=== PATIENT | female | born 1955 | race Caucasian/White ===

== ENCOUNTER 2025-03-06 13:01 | Day surgery (SDC) | payer BC ==
[~2025-03-06] VITALS: Ht 165.1 cm; Wt 63.4 kg
[~2025-03-06 13:01] MED LIST: Balanced Salt Epinephrine Irrigation Solution 500 mL IR SCH; Diazepam 5 MG Tab PO PRN; Diazepam 5 MG Tab PO SCH; Lidocaine HCl/Pf 1% 5 ML VIAL XX SCH; Moxifloxacin HCL 0.5 MG/0.1 ML 0.4MLSYR RIGHTEYE SCH; NS 0 ML IV ONE; Ondansetron 4 MG SoluTab MM PRN; PHENYLEPHRINE\\TROPICAMIDE\\TETRACAINE OPHTHALMIC DILATING SOLN RIGHTEYE PRN; Povidone-Iodine 450 DROP/30 ML Solution ONE; Povidone-Iodine 450 DROP/30 ML Solution RIGHTEYE SCH; Tetracaine HCl/Pf 0.5% Opth Soln 4 ml ONE
[2025-03-06] MEDS ORDERED: Diazepam 10 MG Tab ONE (13:09)
[2025-03-06] MEDS ORDERED: METOPROL SUC TAB 50M (13:27)
[2025-03-06] MEDS ORDERED: ELIQUIS5 M3 PO (13:27)
--- NOTE | 2025-03-06 13:35 | NUR ---
03/06/25 1335 Kandis Rosa CALL LIGHT WITHIN REACH. TETRACAINE IN 1327 IN RIGHT EYE AND PLEDGETT IN AT 1328. CONTINOUS PULSE OXIMETER.
--- NOTE | 2025-03-06 13:53 | NUR ---
03/06/25 1353 Kacey Cleaning 1349 [id number]/99 HR 97 O2 AT 100% RESP 16
[2025-03-06 14:22] VITALS: BP 139/84
== END 2025-03-06 14:21 | disposition home or self-care (01) ==
LOC: ORSCSDS 13:01
PROVIDERS: Student in an Organized Health Care Education/Training Program
PROC: 08RJ3JZ Replacement of Right Lens with Synthetic Substitute, Percutaneous Approach (ICD-10-PCS; principal; 2025-03-06 14:30)
DX: H25.813 Combined forms of age-related cataract, bilateral (principal); Z79.01 Long term (current) use of anticoagulants; Z79.899 Other long term (current) drug therapy
CPT/HCPCS: A9270; J7040; V2632

== ENCOUNTER 2025-09-24 09:54 | Day surgery (SDC) | payer BC ==
[~2025-09-24] VITALS: Ht 165.1 cm; Wt 63.7 kg
[~2025-09-24 09:54] MED LIST changes: -Balanced Salt Epinephrine Irrigation Solution 500 mL IR SCH; -Diazepam 5 MG Tab PO PRN; -Diazepam 5 MG Tab PO SCH; +ELIQUIS5 M3 PO; +Lidocaine HCl 2% 10 ML SDA ONE; -Lidocaine HCl/Pf 1% 5 ML VIAL XX SCH; +METOPROL SUC TAB 50M; -Moxifloxacin HCL 0.5 MG/0.1 ML 0.4MLSYR RIGHTEYE SCH; -NS 0 ML IV ONE; -Ondansetron 4 MG SoluTab MM PRN; -PHENYLEPHRINE\\TROPICAMIDE\\TETRACAINE OPHTHALMIC DILATING SOLN RIGHTEYE PRN; -Povidone-Iodine 450 DROP/30 ML Solution ONE; -Povidone-Iodine 450 DROP/30 ML Solution RIGHTEYE SCH; -Tetracaine HCl/Pf 0.5% Opth Soln 4 ml ONE
[2025-09-24] MEDS ORDERED: CeFAZolin Sodium 2,000 MG VIAL ONE (10:32)
[2025-09-24] MEDS ORDERED: MULVITA (10:38)
[2025-09-24] MEDS ORDERED: TOCO1000 (10:38)
[2025-09-24] MEDS ORDERED: FentaNYL Citrate 50 MCG/ML 2 ML Injection ONE (10:50)
[2025-09-24] MEDS ORDERED: Midazolam HCl 1MG / ML 2ML Vial ONE (10:50)
[2025-09-24] MEDS ORDERED: Dexamethasone Sod Phos 10 MG/ML 1ML VIAL ONE (11:15)
[2025-09-24] MEDS ORDERED: Ondansetron HCl 2 MG / ML 2ML Vial ONE (11:15)
[2025-09-24 12:48] VITALS: BP 142/82
== END 2025-09-24 12:26 | disposition home or self-care (01) ==
LOC: ORSCSDS 09:54
PROVIDERS: Orthopaedic Surgery
PROC: 0JNJ0ZZ Release Right Hand Subcutaneous Tissue and Fascia, Open Approach (ICD-10-PCS; principal; 2025-09-24 11:00)
DX: M72.0 Palmar fascial fibromatosis [Dupuytren] (principal); I48.91 Unspecified atrial fibrillation; Z87.891 Personal history of nicotine dependence; Z79.01 Long term (current) use of anticoagulants; Z79.899 Other long term (current) drug therapy
CPT/HCPCS: J0690; J1100; J2003; J2250; J2405; J2704; J3010; J7120